=== PATIENT | male | born 1995 | race Two or more races ===

== ENCOUNTER 2017-10-22 19:56 | Emergency (ER) | payer OTHER ==
[~2017-10-22] VITALS: Ht 165.1 cm; Wt 68.0 kg
--- NOTE | 2017-10-22 20:50 | NUR ---
PT PRESENTED TO THE ER WITH A C/O CP WITH INSPIRATION AND COUGH. PT HAS A NON PRODUCTIVE COUGH. PT'S O2 SAT IS 97-98% ON RA. PT AMBULATED TO BED #4 WITH A STEADY GAIT. RESP EVEN AND UNLABORED. VSS.
[2017-10-22] MEDS ORDERED: ALBUTEROL FS 2.5 MG/0.5 ML VIAL.NEB NEB ONE (21:00)
--- NOTE | 2017-10-22 21:37 | NUR ---
PT APPEARS TO BE RESTING COMFORTABLY. PT IS SATURATING 95% ON RA. PT IS AWAITING BREATHING TX.
--- NOTE | 2017-10-22 21:39 | NUR ---
BREATHING TX IN PROCESS.
--- NOTE | 2017-10-22 22:18 | NUR ---
Patient discharged to home in stable condition. Written and verbal after care instructions given. Patient verbalizes understanding of instruction AND RX. PT AMBULATED OUT WITH A STEADY GAIT.
[2017-10-22 22:19] VITALS: BP 132/83
== END 2017-10-22 22:20 | disposition home or self-care (01) ==
LOC: ER 20:04
DX: R07.89 Other chest pain (principal); J45.909 Unspecified asthma, uncomplicated
CPT/HCPCS: 71010; 93005; 99284; A4606; Z7610